=== PATIENT | female | born 1960 | race Caucasian/White ===

== ENCOUNTER 2019-12-06 18:28 | Emergency (ER) | payer MEDICAID ==
[~2019-12-06] VITALS: Ht 154.9 cm; Wt 70.3 kg
[2019-12-06] MEDS ORDERED: ALPR0.255 PO (18:42)
[2019-12-06] MEDS ORDERED: NITR0.4T48 SL (18:42)
[2019-12-06] MEDS ORDERED: CLON0.1T PO (18:42)
--- NOTE | 2019-12-06 19:19 | NUR ---
Pt denies any chest pain at this time, states she feels better & would like to go home. Patient discharged to home in stable conditon. Written and verbal after care instructions given. Patient verbalizes understanding of instructions.
[2019-12-06 19:20] VITALS: BP 141/82
== END 2019-12-06 19:21 | disposition home or self-care (01) ==
LOC: ER 18:31
DX: R00.2 Palpitations (principal); I10 Essential (primary) hypertension; Z88.5 Allergy status to narcotic agent; Z88.8 Allergy status to other drugs, medicaments and biological substances; Z79.899 Other long term (current) drug therapy
CPT/HCPCS: 93005; A4663

== ENCOUNTER 2024-08-31 15:56 | Emergency (ER) | payer MEDICAID ==
[~2024-08-31] VITALS: Ht 154.9 cm; Wt 74.8 kg
[~2024-08-31 15:56] MED LIST: ALPR0.255 PO; CLON0.1T PO; NITR0.4T48 SL
[2024-08-31 17:44] LABS: BASOPHILS # (AUTO) 0.1 K/UL (0.0-0.2); BASOPHILS % (AUTO) 1.2 % (0.0-2.0); EOSINOPHILS # (AUTO) 0.1 K/uL (0.0-0.7); EOSINOPHILS % (AUTO) 2.2 % (0.0-7.0); HEMATOCRIT 36.3 % (31.2-41.9); HEMOGLOBIN 12.4 g/dL (10.9-14.3); LYMPHOCYTES # (AUTO) 1.8 K/uL (0.8-4.8); LYMPHOCYTES % (AUTO) 35.4 % (20.5-51.5); MEAN CORPUSCULAR HEMOGLOBIN 29.9 uug (24.7-32.8); MEAN CORPUSCULAR HGB CONC 34 g/dL (32.3-35.6); MEAN CORPUSCULAR VOLUME 87.5 fL (75.5-95.3); MONOCYTES # (AUTO) 0.3 K/uL (0.1-1.30); MONOCYTES % (AUTO) 6.7 % (0.0-11.0); NEUTROPHILS # (AUTO) 2.8 K/uL (1.8-8.9); NEUTROPHILS % (AUTO) 54.5 % (38.5-71.5); PLATELET COUNT (AUTO) 277 K/uL (179-408); RED BLOOD CELL COUNT(AUTO) 4.15 MIL/uL (3.63-4.92); RED CELL DISTRIBUTION WIDTH 13.5 % (12.3-17.7); WHITE BLOOD COUNT (AUTO) 5.2 K/uL (3.8-11.8)
[2024-08-31 17:51] LABS: DIFFERENTIAL COMMENT 1
[2024-08-31 17:53] LABS: CALCIUM 9.3 mg/dL (8.5-10.1); CARBON DIOXIDE 25 mmol/L (21-32); CHLORIDE 97 mmol/L (98-107); CREATININE 0.8 mg/dL (0.6-1.3); GLUCOSE 109 mg/dL (74-106); POTASSIUM 3.1 mmol/L (3.5-5.1); SODIUM SERUM 132 mmol/L (136-145); UREA NITROGEN, BLOOD 11 mg/dL (7-18)
[2024-08-31 18:03] LABS: ALANINE AMINOTRANSFERASE 24 U/L (14-59); ALBUMIN 4.2 g/dL (3.4-5.0); ALKALINE PHOSPHATASE 61 U/L (50-136); ASPARTATE AMINOTRANSFERASE 12 U/L (15-37); BILIRUBIN,DIRECT 0.1 mg/dL (0.0-0.2); BILIRUBIN,TOTAL 0.4 mg/dL (0.2-1.0); NT-PRO BNP 175 pg/mL (0-125); TOTAL PROTEIN, SERUM 7.6 g/dL (6.4-8.2)
[2024-08-31 18:11] VITALS: O2SAT 98
[2024-08-31] MEDS ORDERED: LORAZEPAM 1 MG TABLET ONE (19:33)
[2024-08-31 19:45] VITALS: BP 136/76
[2024-08-31] MEDS: NITROGLYCERIN OINT 1 GM PACKET TP ONE (19:45)
[2024-08-31] MEDS ORDERED: NITROGLYCERIN OINT 1 GM PACKET TP ONE (20:09)
[2024-08-31] MEDS ORDERED: ASPIRIN 81 MG TAB.CHEW ONE (20:09)
[2024-08-31] MEDS: ASPIRIN 81 MG TAB.CHEW PO ONE (20:13)
[2024-08-31] MEDS: LORAZEPAM 0.5 MG TABLET PO ONE (20:13)
== END 2024-08-31 22:30 | disposition short-term general hospital (02) ==
LOC: ER 15:56
DX: R07.89 Other chest pain (principal); I47.10 Supraventricular tachycardia, unspecified; R79.89 Other specified abnormal findings of blood chemistry; F41.9 Anxiety disorder, unspecified; I11.9 Hypertensive heart disease without heart failure; E78.00 Pure hypercholesterolemia, unspecified; Z86.79 Personal history of other diseases of the circulatory system; Z20.822 Contact with and (suspected) exposure to COVID-19; Z79.899 Other long term (current) drug therapy; Z88.5 Allergy status to narcotic agent
CPT/HCPCS: 36415; 71045; 84484; 85025; 85651; 85730; 86140; A4606; A4663